=== PATIENT | male | born 1970 | race African-American/Black ===

== ENCOUNTER 2024-04-30 11:04 | Day surgery (SDC) | payer BC, OTHER ==
[2024-04-30] MEDS ORDERED: Xylocaine-Mpf 2% 5 Ml Vial IJ ONE (11:05)
[2024-04-30] MEDS ORDERED: Lactated Ringers 1,000 ML IV ONE (12:45)
[2024-04-30] MEDS ORDERED: DIPRIVAN 200 MG/20 ML IV ONE (12:56)
--- NOTE | 2024-04-30 14:58 | XRAY ---
Indication: Bilateral L1-L3 MBB. Intraoperative fluoroscopy provided for 9 seconds. Single digital spot image submitted for interpretation demonstrates posterior needle tips projecting over the expected left and right L1-L3 nerve roots. Correlate with intraoperative findings/report.
--- NOTE | 2024-04-30 16:52 | XRAY ---
9 seconds of fluoroscopy was used in surgery for a bilateral L1-L3 MBB.
== END 2024-04-30 13:30 ==
LOC: SDC-PAIN 11:04
PROVIDERS: ATTEND Psychiatry & Neurology Pain Medicine
DX: M47.816 Spondylosis without myelopathy or radiculopathy, lumbar region (principal)
CPT/HCPCS: 64493; 64494; 72020; 77002; J2704

== ENCOUNTER 2024-06-11 12:57 | Day surgery (SDC) | payer BC, OTHER | END 2024-06-11 13:00 | disposition home or self-care (01) | LOC: SDC-PAIN 12:57 | PROVIDERS: ATTEND Psychiatry & Neurology Pain Medicine | DX: Z53.8 Procedure and treatment not carried out for other reasons (principal) ==